=== PATIENT | male | born 1965 | race Caucasian/White ===

== ENCOUNTER 2017-05-01 08:57 | Day surgery (SDC) | payer OTHER, MEDICARE ==
[~2017-05-01 08:57] MED LIST: Buffered Lidocaine 0.9% SYRIN* 5 ML/SYR SYRINGE INTRADERM ONE; Buffered Lidocaine 0.9% SYRIN* 5 ML/SYR SYRINGE ONE; Ketorolac INJ* 30 MG/ML 1 ML VIAL ONE; Sodium Citrate/Citric Acid* 15 ML UDC ONE; Sodium Citrate/Citric Acid* 15 ML UDC PO ONE
[2017-05-01] MEDS ORDERED: ceFAZolin 2 GM PREMIX (*) 50 ML IVPB ONE (09:02)
[2017-05-01] MEDS ORDERED: Bupivacaine 0.5% SDV PF* 30 ML VIAL ONE (09:58)
[2017-05-01] MEDS ORDERED: Midazolam* 1 MG/ML 2 ML VIAL (2 MG) ONE (10:00)
[2017-05-01] MEDS ORDERED: Lidocaine 2% PF * 5 ML VIAL ONE (10:01)
[2017-05-01] MEDS ORDERED: Propofol* 10 MG/ML 20 ML BTL IV PUSH ONE ×2 (10:01→11:31)
[2017-05-01] MEDS ORDERED: fentaNYL* 50 MCG/ML 2 ML VIAL (100 MCG VIAL) ONE ×2 (10:22→12:43)
[2017-05-01] MEDS ORDERED: Ondansetron INJ* 2 MG/ML VIAL IV PRN (10:36)
[2017-05-01] MEDS: fentaNYL* 50 MCG/ML 2 ML VIAL (100 MCG VIAL) IV PRN ×2 (12:44→13:01)
[2017-05-01 13:34] VITALS: BP 129/83
--- NOTE | 2017-05-02 06:09 | OP ---
CC: Dr. Dexter Jolley; Dr. Henry Cotter; Dr. Coleman Brewer; Dr. Coleman Alvarez; Dr. Agustin Galdamez * DATE OF OPERATION: 05/01/17 - [facility] DATE OF : 65 SURGEON: Agustin Ocampo MD RETAIL MANAGER IN TRAINING: Denisha Lindquist NP ANESTHESIOLOGIST: Dr. Adriano Peña. ANESTHESIA: General anesthetic, local infiltration. 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 OPERATIVE PROCEDURE: Left axillary lymph node dissection. DESCRIPTION OF PROCEDURE: Patient was supine on the operating table. After adequate general anesthetic, compression stockings, Leighton Hugger warmer and intravenous antibiotics, the left axilla was clipped and prepped with antiseptic and draped in a sterile fashion. An elliptical incision was carried out encompassing some of the skin overlying the large tumor mass. It was felt that this was important to get adequate margin. The mass was about the size of a tennis ball and was dissected out in its entirety with apparently adequate margin and this was sent in formalin. The remainder of the axilla is dissected out in its entirety. There is little infiltration of this initial mass on to the latissimus. Some of the fibers of the latissimus needed to be cut to remove the mass. The axillary vein was readily identified and the tissue taken down of the axillary vein. The long thoracic and thoracodorsal nerves were identified and kept out of harm's way and the tissue was swept down from between the nerves and the entire axillary elly packet was sent along with larger mass and as a specimen labeled left axillary lymph node dissection with overlying skin. Note that there were couple of lymph nodes in the axillary packet that were somewhat enlarged, the largest of which was about 2 cm. Hemostasis was obtained using clips or cautery as appropriate and again the nerves were kept out of harm's way as was the axillary vein. Jackon-Capellan drain was placed through an inferior stab wound, sutured to the skin. Irrigation was carried out and then closure accomplished with 3-0 Vicryl followed by surgical neva. Sterile dressing was placed. He tolerated the procedure well, was awakened and brought to the Recovery in good condition. No complications. Drain is Brian-Capellan. Sponge and instrument counts correct. Estimated blood loss is 100 mL. Specimen as above. [id number]/[facility] #: [id number] [facility] CENTERBrittney
== END 2017-05-01 13:57 | disposition home or self-care (01) ==
LOC: OR 08:57
PROVIDERS: ATTEND Surgery
DX: C77.3 Secondary and unspecified malignant neoplasm of axilla and upper limb lymph nodes (principal); C43.9 Malignant melanoma of skin, unspecified; I10 Essential (primary) hypertension; Z87.891 Personal history of nicotine dependence
CPT/HCPCS: 88307; 88341; 88342; 88360; A9270-GY; J0690; J1885; J2250; J2704; J3010

== ENCOUNTER 2019-10-14 05:09 | Emergency (ER) | payer OTHER ==
[2019-10-14] MEDS ORDERED: NS 0.9% 1000 ML** 1,000 ML IV ONE (05:15)
--- NOTE | 2019-10-14 05:20 | ED ---
Altered Mental Status - HPI Summary HPI Summary: This pt is a 53 Y/O M brought in by EMS to [facility] after his found him in the bathroom unresponsive but breathing. His stated that the pt was last seen well at 1830 when she went to bed. EMS states that he was hard to arouse and the pt only responded to a sternal rub. He has been sick for the past couple days according to his and has been warm with N/V/D since the onset. The pt started taking Metamucil on Friday10/10/2019 due to constipation. Currently this pt is a level 5 caveat due to his AMS. He has a PMhx of melanoma and spinal stenosis per his . EMS gave the pt .5 atropine on route to [facility] without further arousal. Per his the pt has been taking Opiod medications for chronic back pain. - History Of Current Complaint Chief Complaint: EDAltMentalStatus Stated Complaint: SYNCOPE PER PT Time Seen by Provider: 10/14/19 05:14 Hx Obtained From: EMS Hx From Patient Unobtainable Due To: Altered Mental Status Onset/Duration: Unknown Timing: Constant Severity Initially: Moderate Severity Currently: Moderate Character: Responsiveness Aggravating Factor(s): Unknown Alleviating Factor(s): Unknown Associated Signs And Symptoms: Positive: Nausea, Vomiting, Fever - Allergies/Home Medications Allergies/Adverse Reactions: Allergies Allergy/AdvReac Type Severity Reaction Status Date / Time No Known Allergies Allergy Verified 10/14/19 05:43 PMH/Surg Hx/FS Hx/Imm Hx Previously Healthy: Yes Endocrine/Hematology History: Denies: Hx Diabetes Cardiovascular History: Denies: Hx Hypertension, Hx Pacemaker/ICD GI History: Reports: Other GI Disorders - OCCASIONAL CONSTIPATION History: Denies: Hx Renal Disease Musculoskeletal History: Reports: Hx Arthritis, Hx Back Problems Sensory History: Denies: Hx Contacts or Glasses, Hx Hearing Aid Opthamlomology History: Denies: Hx Contacts or Glasses Neurological History: Reports: Other Neuro Impairments/Disorders - PAIN CLINIC PATIENT Psychiatric History: Reports: Hx Anxiety - not really anxiety, takes effexor to take the edge off from not sleeping we Denies: Hx Panic Disorder - Cancer History Cancer Type, Location and Year: MELANOMA Hx Chemotherapy: No Hx Radiation Therapy: No - Surgical History Surgical History: Yes Surgery Procedure, Year, and Place: BACK SURGERY X6 DISC HERNIATION (DISCECTOMY L4-5X3;L5-S1 X2; L4-S1 FUSION). DORSAL COLUMN STIMULATOR JUNE 2011. dorsal column stimulator removed 04/2016 [facility]-CLEARED BY DR PEREIRA. 05/10 MELANOMA REMOVED LEFT FOREARM. 04/17 LYMPH NODES (20) Hx Anesthesia Reactions: Yes - bad reaction after 2016 surgery- severe mood swings - Immunization History Immunizations Up to Date: Yes Infectious Disease History: Denies: Hx Clostridium Difficile, Hx Hepatitis, Hx Human Immunodeficiency Virus (HIV), Traveled Outside the [place] in Last 30 Days - Social History Lives: With Family Alcohol Use: None Hx Substance Use: Yes Substance Use Type: Reports: Marijuana Substance Use Comment - Amount & Last Used: medical marijuana Smoking Status (MU): Former Smoker Type: Cigarettes Amount Used/How Often: smoked for 20 years 1ppd Have You Smoked in the Last Year: No Review of Systems Positive: Fever Positive: Vomiting, Diarrhea, Nausea, Other - POSITIVE: constipation on 10/10/2019 All Other Systems Reviewed And Are Negative: No - Comments Additional Review of Systems Comments: Pt is currently a level 5 caveat due to his AMS. Physical Exam - Summary Physical Exam Summary: Appearance: Well-appearing, Well-nourished, lying in bed comfortably, who is minimally responsive and at times he opens his eyes and attempts to sit up but at most times he is somnolent. Skin: Warm, dry, no obvious rash Eyes: sclera anicteric, no conjunctival pallor ENT: mucous membranes moist, pharynx appears normal Neck: Supple, nontender Respiratory: Clear to auscultation, no signs of respiratory distress Cardiovascular: Normal S1, S2. No murmurs. Normal distal pulses in tibial and radial bilaterally. Abdomen: Soft, nontender, normal active bowel sounds present Musculoskeletal: Normal, Strength/ROM Intact Neurological: mental status as listed above. Gaze is conjugate, pupils are 3 mms and reactive, muscle tone is felt to be normal Psychiatric: deferred Triage Information Reviewed: Yes Vital Signs On Initial Exam: Temp Pulse Resp BP SpO2 FiO2 97.8 F 97 14 175/98 95 10/14/19 05:15 10/14/19 05:15 10/14/19 05:15 10/14/19 05:15 10/14/19 05:15 Vital Signs Reviewed: Yes Completion Of Physical Exam Limited Due To: Altered Mental Status Procedures - Sedation Patient Received Moderate/Deep Sedation with Procedure: No - Intubation Time of Intubation: 06:03 Tube Size (cm): 8.0 Medications: Succinylcholine - 100 Breath Sounds after Intubation: equal Intubation Complications: no complications Post Intubation Xray: Yes Progress/Xray Impression: ET tube is in good position without complications. Diagnostics - Laboratory Result Diagrams: 10/14/19 05:25 10/14/19 05:25 Lab Statement: Any lab studies that have been ordered have been reviewed, and results considered in the medical decision making process. - Radiology Post-Intubation CXR Radiology Interpretation Completed By: ED Physician Summary of Radiographic Findings: ET tube is in good position without complications. - CT Brain CT CT Interpretation Completed By: Radiologist Summary of CT Findings: Acute hemorrhage in bilateral basal ganglia with surrounding edema; on the right measuring approximately 28 x 12 x 18 mm, and on the left measuring approximately 28 x 16 x 22 mm. No midline shift. ED physician has reviewed this report. - EKG 0521 Cardiac Rate: NL - 95 BPM EKG Rhythm: Sinus Rhythm ST Segment: Normal Summary of EKG Findings: EKG at 0521 reveals normal sinus rhythm with rate of 95 BPM, with a borderline prolonged QT interval, no STEMI. This E[place] [address]/14/2019. Re-Evaluation - Re-Evaluation Second Eval Re-Evaluation Time: 06:14 Change: Worse Comment: Pt began seizing and was given Keppra and versed. First Eval Re-Evaluation Time: 05:58 Change: Worse Comment: Pt received a brain CT which showed a bilateral basal ganglia hemorrhage with edema. Pt will be intubated and prepped for transfer. Altered Mental Statu Course/Dx - Course Course Of Treatment: This pt is a 53 Y/O M brought in by EMS to [facility] after his found him in the bathroom unresponsive but breathing. His stated that the pt was last seen well at 1830 when she went to bed. EMS states that he was hard to arouse and the pt only responded to a sternal rub. He has been sick for the past couple days according to his and has been warm with N/V/D since the onset. The pt started taking Metamucil on Friday10/10/2019 due to constipation. Currently this pt is a level 5 caveat due to his AMS. He has a PMhx of melanoma and spinal stenosis per his . He takes opiods chronically for back pain. EMS gave the pt .5 atropine on route to [facility] without further arousal. His PE found that he is minimally responsive and at times he opens his eyes and attempts to sit up but at most times he is somnolent. Gaze is conjugate, pupils are 3 mms and reactive, muscle tone is felt to be normal. EKG at 0521 reveals normal sinus rhythm with rate of 95 BPM, with a borderline prolonged QT interval, no STEMI. Pt was intubated after receiving a Brain CT which showed Acute hemorrhage in bilateral basal ganglia with surrounding edema ; on the. right measuring approximately 28 x 12 x 18 mm, and on the left measuring approximately 28 x 16 x 22 mm. No midline shift. The intubation began at 0603. An 8.0mm tube was used and there were equal breath sounds following the procedure which was completed at 0605. He received 100 Succinylcholine and 10 etomidate at 0603. Post-intubation CXR shows that the ET tube is in good position. He was given the following medications during his ED course: Etomidate, Keppra, Versed, Cardene, Diprivan, and Succinylcholine. Dr. Martinez, Neurology, was consulted at 0609 and informed of the pt's current condition and plan to transfer the pt to a higher level of care facility. Dr. Martinez is agreeable to the current plan of care and the transfer process will begin at 0610. The transfer center at [facility] was consulted at 0613. Dr. Feliz, Neurosurgery, [facility] accepted the pt at 0615. He recommended cardene drip to keep the pt's blood pressure reduced. He was diagnosed with a bilateral basal ganglia hemorrhage. - Diagnoses Provider Diagnoses: Basal ganglia hemorrhage - Critical Care Time Critical Care Time: 30-74 min - 45 minutes Discharge ED - Sign-Out/Discharge Documenting (check all that apply): Patient Departure - transfer - Discharge Plan Condition: Critical Disposition: TRANS HIGHER LVL OF CARE FAC Referrals: Coleman Alvarez MD [Primary Care Provider] - - Billing Disposition and Condition Condition: CRITICAL Disposition: Trans Higher Lvl of Care Fac - Attestation Statements Document Initiated by Scribe: Yes Documenting Scribe: Ramin Rivero Provider For Whom Scribe is Documenting (Include Credential): Harshal Pérez MD Scribe Attestation: I, Ramin Rivero, scribed for Harshal Pérez MD on 10/14/19 at 0649. Scribe Documentation Reviewed: Yes Provider Attestation: The documentation as recorded by the scribeRamin accurately reflects the service I personally performed and the decisions made by me, Harshal Pérez MD Status of Scribe Document: Viewed Consult Consult: Dr. Martinez, Neurology, was consulted at 0609 and informed of the pt's current condition and plan to transfer the pt to a higher level of care facility. Dr. Martinez is agreeable to the current plan of care and the transfer process will begin at 0610. The transfer center at [facility] was consulted at 0613. Dr. Feliz, Neurosurgery, [facility] accepted the pt at 0615. He recommended cardene drip to keep the pt's blood pressure reduced.
[2019-10-14 05:33] LABS: ABS Lymphocytes 0.6 10^3/ul (1.0-4.8); ABS Monocytes 0.4 10^3/ul (0-0.8); ABS Neutrophils 6.2 10^3/ul (1.5-7.7); Hematocrit 42 % (42-52); Hemoglobin 14.5 g/dL (14.0-18.0); Lymphocyte % 8.2 %; Mean Corpuscular HGB Conc 35 g/dL (31-36); Mean Corpuscular Hemoglobin 31 pg (27-31); Mean Corpuscular Volume 88 fL (80-94); Mean Platelet Volume 8.3 fL (7.4-10.4); Platelet Count 189 10^3/uL (150-450); Red Blood Count 4.73 10^6 /uL (4.18-5.48); Red Cell Distribution Width 13 % (10-15); White Blood Count 7.3 10^3/uL (3.5-10.8)
[2019-10-14 05:51] LABS: ALT 27 U/L (7-52); AST 32 U/L (13-39); Albumin 4.3 g/dL (3.2-5.2); Albumin/Globulin Ratio 1.7 (1-3); Alkaline Phosphatase 84 U/L (34-104); Anion Gap 7 mmol/L (2-11); BUN/Creatinine Ratio 10.9 (8-20); Blood Urea Nitrogen 16 mg/dL (6-24); CO2 Carbon Dioxide 26 mmol/L (22-32); Calcium 9.5 mg/dL (8.6-10.3); Chloride 101 mmol/L (101-111); Creatine Kinase 86 U/L (10-223); EGFR African American 60.6 (>60); EGFR Non-African American 50.1 (>60); Globulin 2.6 g/dL (2-4); Glucose 153 mg/dL (70-100); Potassium 4.2 mmol/L (3.5-5.0); Sodium 134 mmol/L (135-145); Total Protein 6.9 g/dL (6.4-8.9)
[2019-10-14 05:53] LABS: Urine Appearance Clear; Urine Bilirubin Negative (Negative); Urine Blood Negative (Negative); Urine Color Yellow; Urine Glucose Negative (Negative); Urine Ketones 1+ (Negative); Urine Nitrite Negative (Negative); Urine Protein Negative (Negative); Urine Specific Gravity 1.012 (1.010-1.030); Urine Urobilinogen Negative (Negative)
[2019-10-14] MEDS ORDERED: Propofol* 100 ML ONE (05:58)
[2019-10-14] MEDS ORDERED: Succinylcholine* 20 MG/ML 10 ML VIAL ONE (06:00)
[2019-10-14] MEDS ORDERED: Etomidate* 2 MG/ML 10 ML VIAL ONE (06:00)
[2019-10-14 06:07] LABS: Acetaminophen < 15 mcg/mL; Alcohol < 10 mg/dL (<10)
[2019-10-14 06:09] LABS: Urine Benzodiazepine Screen None Detected (None Detect); Urine Opiates Screen Presumptive Positive (None Detect)
[2019-10-14] MEDS ORDERED: levETIRAcetam 1000MG IVPREMIX* 1,000 MG/100 ML BAG IVPB ONE (06:10)
[2019-10-14] MEDS ORDERED: Succinylcholine* 20 MG/ML 10 ML VIAL IV ONE (06:11)
[2019-10-14] MEDS ORDERED: Etomidate* 2 MG/ML 10 ML VIAL IV ONE (06:11)
[2019-10-14] MEDS ORDERED: Propofol* 100 ML IV ONE (06:12)
[2019-10-14] MEDS ORDERED: niCARdipine 0.1MG/ML IVPREMIX* 20 MG/200 ML BAG IV ONE (06:12)
[2019-10-14] MEDS ORDERED: Midazolam* 1 MG/ML 10 ML VIAL (10 MG) IV SLOW PU ONE (06:14)
[2019-10-14 07:00] VITALS: BP 144/88
[2019-10-14] MEDS ORDERED: niCARdipine 0.1MG/ML IVPREMIX* 20 MG/200 ML BAG IV SCH (07:00)
== END 2019-10-14 07:20 | disposition short-term general hospital (02) ==
LOC: ED 05:09
DX: I61.0 Nontraumatic intracerebral hemorrhage in hemisphere, subcortical (principal); F41.9 Anxiety disorder, unspecified; Z85.820 Personal history of malignant melanoma of skin; Z87.891 Personal history of nicotine dependence; Z79.899 Other long term (current) drug therapy
CPT/HCPCS: 36415; 70450; 71045; 80053; 80307; 80320; 80329; 81003; 82140; 82550; 83605; 84484; 85025; 93005; 96374; 96375; 99285; G0480; J0330; J1953; J2704